=== PATIENT | male | born 1970 | race Caucasian/White ===

== ENCOUNTER 2017-04-22 08:31 | Inpatient (IN) | payer MEDICAID, OTHER ==
[~2017-04-22] VITALS: Ht 172.7 cm; Wt 60.3 kg
[2017-04-22] MEDS ORDERED: LORazepam 2MG/ML-1ML VIAL IV ONE ×4 (08:45→11:15)
[2017-04-22 09:12] LABS: Basophils # (auto) 0 uL; Basophils % (auto) 0.1 % (0.0-2.0); CONDITION Y; Eosinophils # (auto) 0 uL; Hematocrit 47.4 % (41.0-53.0); Hemoglobin 16.4 g/dL (13.5-17.5); Lymphocytes # (auto) 0.9 uL; Lymphocytes % (auto) 5.7 % (10.0-50.0); Mean Corpuscular Hemoglobin 32.3 pg (28.0-32.0); Mean Corpuscular Hgb Conc. 34.6 g/dL (32.0-36.0); Mean Corpuscular Volume 93.4 fL (80.0-100.0); Mean Platelet Volume 9.1 fL (7.4-10.4); Monocytes # (auto) 0.8 uL; Neutrophils % (auto) 89.2 % (37.0-80.0); Platelet Count (auto) 252 10^3/uL (140-450); Red Cell Distribution Width 12.8 % (11.6-16.0); White Blood Cell 15.8 10^3/uL (4.4-10.8)
[2017-04-22 09:26] LABS: Allen Test Yes; Base Excess -5.5 mmol/L (-2.0-2.0); Blood 02Sat 97.2 % (96-100); Blood COHb 0.1 % (0.5-1.5); Blood MetHb 0.4 % (0.0-1.5); HCO3 14.7 mmol/L (22-26.0); HHb 2.8 % (0.0-5.0); MODE NASAL CANNULA; O2Hb 96.7 % (94.0-97.0); PCO2 19.5 mmHg (35.0-45.0); PCO2(T) 19.5 mmHg (35.0-45.0); PO2 100.4 mmHg (80.0-100.0); PO2(T) 100.4 mmHg (80.0-100.0); Sample Type Arterial; pH 7.495 (7.350-7.450)
[2017-04-22 09:27] LABS: INR 1.11 (0.9-1.15); Partial Thromboplastin Time 30.6 sec (22.64-33.71); Prothrombin Time 12.1 sec (9.37-12.3)
[2017-04-22] MEDS ORDERED: SODIUM CHLORIDE 0.9% 2,000 ML IV ONE (09:30)
[2017-04-22 09:33] LABS: Lactic Acid w/Reflex 11.3 mmol/L (0.4-2.0)
[2017-04-22 09:39] LABS: Albumin 2.9 g/dL (3.4-5.0); Alkaline Phosphatase 105 U/L (45-117); Anion Gap 24 (5-15); BUN/Creatinine Ratio 6.6; Bilirubin, Total 0.5 mg/dL (0.2-1.0); Blood Urea Nitrogen 15 mg/dL (7-18); Carbon Dioxide 13 mmol/L (21-32); Chloride 79 mmol/L (98-107); GFR African American 40 mL/min; GFR Non-African American 33 mL/min; Glucose 105 mg/dL (74-106); Magnesium 2.7 mg/dL (1.6-2.6); Total Protein 7.2 g/dL (6.4-8.2)
[2017-04-22 09:41] LABS: REFLEX LACTIC ACID YES OR NO YES
[2017-04-22 09:42] LABS: Aspartate Aminotransferase 54 U/L (15-37)
[2017-04-22 09:44] LABS: Sodium 116 mmol/L (136-145)
[2017-04-22 09:56] LABS: Urine Bilirubin Negative (Negative); Urine Blood 1+ /uL (Negative); Urine Color Yellow (Yellow); Urine Glucose Normal (Normal); Urine Hyaline Cast FEW /lpf (0 - 2); Urine Ketone 1+ (Negative); Urine Mucus FEW (None Seen); Urine Nitrite Negative (Negative); Urine RBC 4 /hpf (0 - 3); Urine Squamous Epithelial Cell FEW /hpf (<5); Urine Urobilinogen Normal (Negative); Urine pH 5.5 (5.0-8.0)
[2017-04-22] MEDS ORDERED: SODIUM CHLORIDE 0.9% 1,000 ML IV ONE ×3 (10:00→11:15)
[2017-04-22] MEDS ORDERED: PIPERACILLIN-TAZOB 3.375GM 100 ML IV ONE (10:30)
[2017-04-22] MEDS ORDERED: SODIUM CHL 3% 500 ML IV ONE (10:30)
[2017-04-22] MEDS ORDERED: MORPHINE SULFATE 4 MG/ML SYRG IV PRN ×2 (11:15)
[2017-04-22] MEDS ORDERED: NITROGLYCERIN 0.4 MG SL TAB SL PRN (11:15)
[2017-04-22] MEDS ORDERED: MORPHINE SULFATE 4 MG/ML SYRG IV ONE (11:15)
[2017-04-22] MEDS ORDERED: LACTULOSE 20Gm/30ML SOLN PO PRN (11:15)
[2017-04-22] MEDS ORDERED: HYDROcodone-ACET 5/325MG TAB PO PRN (11:15)
[2017-04-22] MEDS ORDERED: ONDANSETRON HCL 4 MG/2 ML VIAL IV PRN (11:15)
[2017-04-22] MEDS ORDERED: LORazepam 2MG/ML-1ML VIAL IV PRN (11:15)
[2017-04-22] MEDS ORDERED: ACETAMINOPHEN 500 MG TAB PO PRN (11:15)
[2017-04-22] MEDS: ENOXAPARIN SOD 40 MG/0.4 ML SYRINGE SC SCH (11:45)
[2017-04-22] MEDS: cefTRIAXone 1GM/50ML D5W 50 ML IV SCH (12:37)
[2017-04-22] MEDS: AZITHROMYCIN 500MG/D5W 250ML 250 ML IV SCH (13:00)
[2017-04-22 15:10] LABS: Temperature: 23.4 C (20.0-25.0)
[2017-04-23] MEDS: SODIUM CHLORIDE 0.9% 1,000 ML IV SCH ×2 (02:28→15:58)
[2017-04-23] MEDS ORDERED: SODIUM CHL 3% 500 ML IV ONE (02:30)
[2017-04-23 05:19] LABS: Basophils # (auto) 0 uL; Basophils % (auto) 0.1 % (0.0-2.0); CONDITION Y; Eosinophils # (auto) 0 uL; Eosinophils % (auto) 0.1 % (0.0-7.0); Hematocrit 32.3 % (41.0-53.0); Hemoglobin 11.2 g/dL (13.5-17.5); Lymphocytes % (auto) 9.9 % (10.0-50.0); Mean Corpuscular Hemoglobin 32.8 pg (28.0-32.0); Mean Corpuscular Hgb Conc. 34.7 g/dL (32.0-36.0); Mean Corpuscular Volume 94.5 fL (80.0-100.0); Mean Platelet Volume 9.2 fL (7.4-10.4); Monocytes # (auto) 0.5 uL; Monocytes % (auto) 4.8 % (0.0-12.0); Neutrophils # (auto) 8.4 uL; Neutrophils % (auto) 85.1 % (37.0-80.0); Platelet Count (auto) 181 10^3/uL (140-450); Red Cell Distribution Width 13.1 % (11.6-16.0); White Blood Cell 9.9 10^3/uL (4.4-10.8)
[2017-04-23 05:33] LABS: BUN/Creatinine Ratio 16.5; Calcium 6.5 mg/dL (8.5-10.1); INR 1.1 (0.9-1.15); Partial Thromboplastin Time 36.7 sec (22.64-33.71); Potassium 3.4 mmol/L (3.5-5.1)
[2017-04-23] MEDS: cefTRIAXone 1GM/50ML D5W 50 ML IV SCH (09:06)
[2017-04-23] MEDS: ENOXAPARIN SOD 40 MG/0.4 ML SYRINGE SC SCH (10:30)
[2017-04-23] MEDS: AZITHROMYCIN 500MG/D5W 250ML 250 ML IV SCH (10:30)
[2017-04-23] MEDS ORDERED: CLINDAMYCIN 900MG IV 50 ML IV ONE (11:15)
[2017-04-23] MEDS: THIAMINE INJ 100 MG, MULTIPLE VITAMIN 10 ML, FOLIC ACID 1 MG, MAGNESIUM SULF SDV 50% 8 ... IV SCH ×5 (15:58)
[2017-04-23] MEDS: CLINDAMYCIN 600MG IV 50 ML IV SCH (17:36)
[2017-04-23 21:56] LABS: BUN/Creatinine Ratio 14.9; Calcium 7.1 mg/dL (8.5-10.1); Potassium 3.1 mmol/L (3.5-5.1)
[2017-04-24] MEDS ORDERED: POTASSIUM CHL 20 Meq TABLET PO ONE (02:15)
[2017-04-24] MEDS: CLINDAMYCIN 600MG IV 50 ML IV SCH (03:04)
[2017-04-24 05:37] VITALS: BP 137/89
[2017-04-24 06:26] VITALS: BP 137/89
[2017-04-24 08:00] VITALS: BP 124/87
[2017-04-24 08:03] LABS: Basophils # (auto) 0 uL; Basophils % (auto) 0.1 % (0.0-2.0); CONDITION Y; Eosinophils # (auto) 0.1 uL; Eosinophils % (auto) 0.5 % (0.0-7.0); Hemoglobin 11.9 g/dL (13.5-17.5); Lymphocytes # (auto) 1.5 uL; Lymphocytes % (auto) 14.5 % (10.0-50.0); Mean Corpuscular Hemoglobin 32.5 pg (28.0-32.0); Mean Corpuscular Hgb Conc. 34.2 g/dL (32.0-36.0); Mean Corpuscular Volume 95.2 fL (80.0-100.0); Mean Platelet Volume 9.3 fL (7.4-10.4); Monocytes # (auto) 0.5 uL; Monocytes % (auto) 5.1 % (0.0-12.0); Neutrophils # (auto) 8.4 uL; Neutrophils % (auto) 79.8 % (37.0-80.0); Platelet Count (auto) 178 10^3/uL (140-450); Red Cell Distribution Width 13.2 % (11.6-16.0); White Blood Cell 10.5 10^3/uL (4.4-10.8)
[2017-04-24 08:32] LABS: BUN/Creatinine Ratio 10.3; Bilirubin, Total 0.3 mg/dL (0.2-1.0); Calcium 7.4 mg/dL (8.5-10.1); Potassium 3.2 mmol/L (3.5-5.1)
[2017-04-24] MEDS: cefTRIAXone 1GM/50ML D5W 50 ML IV SCH (09:33)
[2017-04-24] MEDS: SODIUM CHLORIDE 0.9% 1,000 ML IV SCH ×2 (09:33→18:39)
[2017-04-24] MEDS: ENOXAPARIN SOD 40 MG/0.4 ML SYRINGE SC SCH (10:42)
[2017-04-24] MEDS: AZITHROMYCIN 500MG/D5W 250ML 250 ML IV SCH (10:42)
[2017-04-24 12:00] VITALS: BP_SYST 109; BP_SYST 113; BP_DIAS 61; BP_DIAS 84
[2017-04-24] MEDS: FOLIC ACID 1 MG TAB PO SCH (13:05)
[2017-04-24] MEDS ORDERED: LORazepam 2MG/ML-1ML VIAL IV PRN (15:00)
[2017-04-24] MEDS: THIAMINE INJ 100 MG, MULTIPLE VITAMIN 10 ML, FOLIC ACID 1 MG, MAGNESIUM SULF SDV 50% 8 ... IV SCH ×5 (16:28)
[2017-04-24 17:00] VITALS: BP 130/80
[2017-04-24 23:40] VITALS: BP 146/108
[2017-04-25 05:28] VITALS: BP 135/79
[2017-04-25 05:37] LABS: Basophils # (auto) 0 uL; Basophils % (auto) 0.3 % (0.0-2.0); CONDITION Y; Eosinophils # (auto) 0.1 uL; Eosinophils % (auto) 0.5 % (0.0-7.0); Hemoglobin 11.3 g/dL (13.5-17.5); Lymphocytes # (auto) 1.5 uL; Mean Corpuscular Hemoglobin 32.5 pg (28.0-32.0); Mean Corpuscular Hgb Conc. 34.3 g/dL (32.0-36.0); Mean Corpuscular Volume 94.7 fL (80.0-100.0); Mean Platelet Volume 9.5 fL (7.4-10.4); Monocytes # (auto) 0.6 uL; Monocytes % (auto) 6.4 % (0.0-12.0); Neutrophils # (auto) 7.3 uL; Neutrophils % (auto) 76.8 % (37.0-80.0); Platelet Count (auto) 191 10^3/uL (140-450); Red Cell Distribution Width 13.2 % (11.6-16.0); White Blood Cell 9.5 10^3/uL (4.4-10.8)
[2017-04-25 06:05] LABS: INR 1.03 (0.9-1.15); Prothrombin Time 11.2 sec (9.37-12.3)
[2017-04-25 06:20] LABS: Albumin 1.8 g/dL (3.4-5.0); BUN/Creatinine Ratio 5.3; Magnesium 2.4 mg/dL (1.6-2.6)
[2017-04-25 06:23] LABS: Bilirubin, Total 0.5 mg/dL (0.2-1.0); Total Protein 5.3 g/dL (6.4-8.2)
[2017-04-25] MEDS: SODIUM CHLORIDE 0.9% 1,000 ML IV SCH (07:50)
[2017-04-25 08:00] VITALS: BP 141/94
[2017-04-25] MEDS: cefTRIAXone 1GM/50ML D5W 50 ML IV SCH (09:00)
[2017-04-25] MEDS: AZITHROMYCIN 500MG/D5W 250ML 250 ML IV SCH (10:00)
[2017-04-25] MEDS: ENOXAPARIN SOD 40 MG/0.4 ML SYRINGE SC SCH (10:35)
[2017-04-25] MEDS: FOLIC ACID 1 MG TAB PO SCH (10:35)
[2017-04-25 12:00] VITALS: BP 144/94
[2017-04-25 13:41] VITALS: BP 142/75
== END 2017-04-25 14:50 | disposition home or self-care (01) | DRG 640 ==
LOC: ER 08:34 → TELE 08:35 → WEST WING 04-24 05:20 → TELE-WESTW 04-24 18:57
PROVIDERS: ADMIT Internal Medicine; ATTEND Internal Medicine
DX: E87.1 Hypo-osmolality and hyponatremia (principal); J18.1 Lobar pneumonia, unspecified organism; J98.11 Atelectasis; M62.82 Rhabdomyolysis; N17.9 Acute kidney failure, unspecified; T67.0XXA Heatstroke and sunstroke, initial encounter; E87.2 Acidosis; I50.9 Heart failure, unspecified; R00.0 Tachycardia, unspecified; E86.0 Dehydration; R56.9 Unspecified convulsions; F10.20 Alcohol dependence, uncomplicated
CPT/HCPCS: 36415; 36600; 70450; 70551; 71010; 71020; 76700; 80048; 80053; 80307; 80320; 81001; 82550; 82607; 82746; 82805; 83605; 83735; 83930; 84443; 84484; 85025; 85610; 85730; 86141; 87040; 87077; 87186; 93005; 93306; 95819; 96365; 96366; 96368; 96375; 96376; 99291; J0696; J2543; J3490

== ENCOUNTER 2017-04-26 21:05 | Inpatient (IN) | payer OTHER ==
[~2017-04-26] VITALS: Ht 175.3 cm; Wt 59.4 kg
[2017-04-26 22:31] LABS: Basophils # (auto) 0 uL; Basophils % (auto) 0.2 % (0.0-2.0); CONDITION Y; Eosinophils # (auto) 0.1 uL; Eosinophils % (auto) 0.5 % (0.0-7.0); Hematocrit 32.7 % (41.0-53.0); Hemoglobin 11.2 g/dL (13.5-17.5); Lymphocytes # (auto) 1.7 uL; Lymphocytes % (auto) 14.1 % (10.0-50.0); Mean Corpuscular Hemoglobin 32.1 pg (28.0-32.0); Mean Corpuscular Hgb Conc. 34.1 g/dL (32.0-36.0); Monocytes # (auto) 0.8 uL; Monocytes % (auto) 6.4 % (0.0-12.0); Neutrophils # (auto) 9.5 uL; Neutrophils % (auto) 78.8 % (37.0-80.0); Platelet Count (auto) 245 10^3/uL (140-450); Red Cell Distribution Width 13.7 % (11.6-16.0); White Blood Cell 12.1 10^3/uL (4.4-10.8)
[2017-04-26 22:47] LABS: Albumin 2.2 g/dL (3.4-5.0); Alkaline Phosphatase 70 U/L (45-117); Anion Gap 16 (5-15); Aspartate Aminotransferase 77 U/L (15-37); BUN/Creatinine Ratio 7.5; Bilirubin, Total 0.6 mg/dL (0.2-1.0); Blood Urea Nitrogen 4 mg/dL (7-18); Calcium 7.9 mg/dL (8.5-10.1); Carbon Dioxide 19 mmol/L (21-32); Chloride 94 mmol/L (98-107); GFR African American 213 mL/min; GFR Non-African American 176 mL/min; Glucose 65 mg/dL (74-106); Magnesium 2.2 mg/dL (1.6-2.6); Sodium 129 mmol/L (136-145); Total Protein 6.1 g/dL (6.4-8.2)
[2017-04-26 22:53] LABS: Potassium 2.7 mmol/L (3.5-5.1)
[2017-04-27] MEDS: POTASSIUM CHL 20 Meq TABLET PO ONE ×2 (00:45→00:53)
[2017-04-27] MEDS ORDERED: THIAMINE HCL 100 MG/ML 2ML VIAL IV ONE (00:45)
[2017-04-27] MEDS ORDERED: SODIUM CHLORIDE 0.9% 1,000 ML IV ONE (00:45)
[2017-04-27] MEDS ORDERED: POTASSIUM CHL 10% (20 MEQ/15ML) ORAL SOLN PO ONE (01:30)
[2017-04-27 02:08] LABS: Urine RBC None Seen /hpf (0 - 3)
[2017-04-27 02:23] LABS: Urine Bilirubin Negative (Negative); Urine Blood TRACE /uL (Negative); Urine Color Yellow (Yellow); Urine Glucose Normal (Normal); Urine Nitrite Negative (Negative); Urine Urobilinogen Normal (Negative); Urine pH 5.5 (5.0-8.0)
[2017-04-27 02:25] LABS: Urine Ketone 4+ (Negative)
[2017-04-27 03:42] LABS: Amylase 48 U/L (25-115)
[2017-04-27 03:57] LABS: B-Type Natriuretic Peptide 714.42 pg/mL (0-100)
[2017-04-27 04:05] LABS: INR 1.05 (0.9-1.15); Partial Thromboplastin Time 33.4 sec (22.64-33.71); Prothrombin Time 11.4 sec (9.37-12.3)
[2017-04-27 04:07] LABS: Temperature: 23.3 C (20.0-25.0)
[2017-04-27] MEDS ORDERED: TEMAZEPAM 15 MG CAP PO PRN (05:30)
[2017-04-27] MEDS ORDERED: HYDROcodone-ACET 5/325MG TAB PO PRN (05:30)
[2017-04-27] MEDS ORDERED: MORPHINE SULF INJ 2 MG/ML SYRINGE 1ML IV PRN (05:30)
[2017-04-27] MEDS ORDERED: NITROGLYCERIN 0.4 MG SL TAB SL PRN (05:30)
[2017-04-27] MEDS ORDERED: ACETAMINOPHEN 325 MG TAB PO PRN (05:30)
[2017-04-27] MEDS ORDERED: ONDANSETRON HCL 4 MG/2 ML VIAL IV PRN (05:30)
[2017-04-27] MEDS: SODIUM CHLORIDE 0.9% 1,000 ML IV SCH ×2 (05:55→20:30)
[2017-04-27 05:56] LABS: BUN/Creatinine Ratio 6.4; Calcium 7.4 mg/dL (8.5-10.1)
[2017-04-27] MEDS ORDERED: IOHEXOL 350 MG/ML 100ML IJ ONE (09:51)
[2017-04-27] MEDS: FAMOTIDINE 20 MG TAB PO SCH ×2 (10:29→21:47)
[2017-04-27] MEDS: ASPirin 81 mg TAB PO SCH (10:29)
[2017-04-27] MEDS: THIAMINE HCL 100 MG TAB PO SCH (10:29)
[2017-04-27] MEDS: ENOXAPARIN SOD 40 MG/0.4 ML SYRINGE SC SCH (10:29)
[2017-04-27] MEDS: FOLIC ACID 1 MG TAB PO SCH (10:29)
[2017-04-27] MEDS: AZITHROMYCIN 500MG/D5W 250ML 250 ML IV SCH (12:54)
[2017-04-27] MEDS: cefTRIAXone 1GM/50ML D5W 50 ML IV SCH (12:54)
[2017-04-27 16:42] LABS: Basophils # (auto) 0 uL; Basophils % (auto) 0.1 % (0.0-2.0); CONDITION Y; Eosinophils # (auto) 0.3 uL; Eosinophils % (auto) 3.4 % (0.0-7.0); Hematocrit 31.2 % (41.0-53.0); Hemoglobin 10.6 g/dL (13.5-17.5); Lymphocytes # (auto) 1.6 uL; Lymphocytes % (auto) 15.4 % (10.0-50.0); Mean Corpuscular Hemoglobin 32.1 pg (28.0-32.0); Mean Corpuscular Hgb Conc. 34.1 g/dL (32.0-36.0); Mean Corpuscular Volume 94.2 fL (80.0-100.0); Mean Platelet Volume 8.6 fL (7.4-10.4); Monocytes # (auto) 0.7 uL; Neutrophils # (auto) 7.7 uL; Neutrophils % (auto) 74.1 % (37.0-80.0); Platelet Count (auto) 231 10^3/uL (140-450); Red Cell Distribution Width 13.3 % (11.6-16.0); White Blood Cell 10.3 10^3/uL (4.4-10.8)
[2017-04-27] MEDS ORDERED: POTASSIUM CHL 20 Meq TABLET PO ONE (19:45)
[2017-04-27 20:30] VITALS: BP 153/86
[2017-04-27 22:00] VITALS: BP 153/86
[2017-04-28 05:00] VITALS: BP 164/97
[2017-04-28 07:33] LABS: Basophils # (auto) 0 uL; Basophils % (auto) 0.2 % (0.0-2.0); CONDITION Y; Eosinophils # (auto) 0.3 uL; Eosinophils % (auto) 2.8 % (0.0-7.0); Hematocrit 30.7 % (41.0-53.0); Hemoglobin 10.6 g/dL (13.5-17.5); Lymphocytes # (auto) 1.3 uL; Lymphocytes % (auto) 11.3 % (10.0-50.0); Mean Corpuscular Hemoglobin 32.6 pg (28.0-32.0); Mean Corpuscular Hgb Conc. 34.5 g/dL (32.0-36.0); Mean Corpuscular Volume 94.5 fL (80.0-100.0); Monocytes # (auto) 0.6 uL; Monocytes % (auto) 5.6 % (0.0-12.0); Neutrophils % (auto) 80.1 % (37.0-80.0); Platelet Count (auto) 219 10^3/uL (140-450); Red Cell Distribution Width 13.6 % (11.6-16.0); White Blood Cell 11.2 10^3/uL (4.4-10.8)
[2017-04-28 07:42] LABS: INR 1.07 (0.9-1.15); Prothrombin Time 11.7 sec (9.37-12.3)
[2017-04-28 07:50] LABS: Albumin 1.7 g/dL (3.4-5.0); BUN/Creatinine Ratio 5.7; Bilirubin, Total 0.4 mg/dL (0.2-1.0); Calcium 7.7 mg/dL (8.5-10.1); Magnesium 2.1 mg/dL (1.6-2.6); Total Protein 5.2 g/dL (6.4-8.2)
[2017-04-28 07:54] LABS: Potassium 2.9 mmol/L (3.5-5.1)
[2017-04-28 08:00] VITALS: BP 155/95
[2017-04-28 09:00] VITALS: BP 155/95
[2017-04-28] MEDS ORDERED: POTASSIUM CHL 20 Meq TABLET PO ONE ×2 (09:15→11:15)
[2017-04-28] MEDS: cefTRIAXone 1GM/50ML D5W 50 ML IV SCH (09:20)
[2017-04-28] MEDS: ENOXAPARIN SOD 40 MG/0.4 ML SYRINGE SC SCH (10:00)
[2017-04-28] MEDS ORDERED: LIDOCAINE 2%HCL (LOCAL ANESTH.) INJ 20ML MDV ONE (11:20)
[2017-04-28] MEDS ORDERED: IOHEXOL 350 MG/ML 100ML IJ ONE (11:20)
[2017-04-28] MEDS: SODIUM CHLORIDE 0.9% 1,000 ML IV SCH (11:47)
[2017-04-28] MEDS: AZITHROMYCIN 500MG/D5W 250ML 250 ML IV SCH (11:49)
[2017-04-28] MEDS ORDERED: MIDAZOLAM HCL 1MG/1ML-2 ML VIAL ONE (11:54)
[2017-04-28] MEDS ORDERED: fentaNYL CITRATE 100 MCG/2 ML VL ONE (11:54)
[2017-04-28] MEDS ORDERED: ANGIOMAX 250 MG VIAL IV ONE (11:54)
[2017-04-28] MEDS ORDERED: SODIUM CHL 0.9% 50 ML ONE (11:54)
[2017-04-28] MEDS ORDERED: EPTIFIBATIDE INJ (2MG/ML) 10ML VIAL IV ONE (11:55)
[2017-04-28] MEDS ORDERED: SODIUM CHLORIDE 0.9% 1,000 ML IV SCH ×2 (12:35→15:00)
[2017-04-28] MEDS: FOLIC ACID 1 MG TAB PO SCH (12:58)
[2017-04-28] MEDS: ASPirin 81 mg TAB PO SCH (12:58)
[2017-04-28] MEDS: FAMOTIDINE 20 MG TAB PO SCH ×2 (12:59→21:54)
[2017-04-28] MEDS: THIAMINE HCL 100 MG TAB PO SCH (12:59)
[2017-04-28] MEDS ORDERED: chlordiazePOXIDE HCL 25 MG CAP PO PRN (16:45)
[2017-04-28 17:16] VITALS: BP 160/97
[2017-04-28 20:00] VITALS: BP 105/70
[2017-04-28 22:00] VITALS: BP 105/70
[2017-04-29] VITALS (7 sets, daily range): BP systolic 130–141; BP diastolic 82–99
[2017-04-29 07:11] LABS: Basophils # (auto) 0.1 uL; Basophils % (auto) 0.6 % (0.0-2.0); CONDITION Y; Eosinophils # (auto) 0.4 uL; Eosinophils % (auto) 3.8 % (0.0-7.0); Hematocrit 27.6 % (41.0-53.0); Hemoglobin 9.4 g/dL (13.5-17.5); Lymphocytes # (auto) 1.9 uL; Lymphocytes % (auto) 19.6 % (10.0-50.0); Mean Corpuscular Hemoglobin 32.2 pg (28.0-32.0); Mean Corpuscular Hgb Conc. 34.2 g/dL (32.0-36.0); Mean Corpuscular Volume 94.1 fL (80.0-100.0); Mean Platelet Volume 8.7 fL (7.4-10.4); Monocytes # (auto) 0.6 uL; Monocytes % (auto) 6.5 % (0.0-12.0); Neutrophils # (auto) 6.8 uL; Neutrophils % (auto) 69.5 % (37.0-80.0); Platelet Count (auto) 237 10^3/uL (140-450); Red Cell Distribution Width 13.7 % (11.6-16.0); White Blood Cell 9.8 10^3/uL (4.4-10.8)
[2017-04-29 07:22] LABS: INR 1.14 (0.9-1.15)
[2017-04-29 07:30] LABS: Prothrombin Time 12.4 sec (9.37-12.3)
[2017-04-29 07:43] LABS: Albumin 1.6 g/dL (3.4-5.0); BUN/Creatinine Ratio 10.3; Bilirubin, Total 0.3 mg/dL (0.2-1.0); Calcium 7.6 mg/dL (8.5-10.1); Total Protein 5.3 g/dL (6.4-8.2)
[2017-04-29 08:04] LABS: Potassium 2.9 mmol/L (3.5-5.1)
[2017-04-29] MEDS: FAMOTIDINE 20 MG TAB PO SCH ×2 (10:05→22:06)
[2017-04-29] MEDS: FOLIC ACID 1 MG TAB PO SCH (10:05)
[2017-04-29] MEDS: cefTRIAXone 1GM/50ML D5W 50 ML IV SCH (10:05)
[2017-04-29] MEDS: ASPirin 81 mg TAB PO SCH (10:05)
[2017-04-29] MEDS: THIAMINE HCL 100 MG TAB PO SCH (10:05)
[2017-04-29] MEDS: ENOXAPARIN SOD 40 MG/0.4 ML SYRINGE SC SCH (10:06)
[2017-04-29] MEDS: AZITHROMYCIN 500MG/D5W 250ML 250 ML IV SCH (10:50)
[2017-04-29] MEDS ORDERED: POTASSIUM CHL 20 Meq TABLET PO ONE ×2 (16:00→18:15)
[2017-04-29] MEDS: SODIUM CHLORIDE 0.9% 1,000 ML IV SCH (16:26)
[2017-04-30] VITALS (7 sets, daily range): BP systolic 139–171; BP diastolic 76–97
[2017-04-30 06:39] LABS: Basophils # (auto) 0 uL; Basophils % (auto) 0.4 % (0.0-2.0); CONDITION Y; Eosinophils # (auto) 0.2 uL; Eosinophils % (auto) 1.6 % (0.0-7.0); Hematocrit 27.5 % (41.0-53.0); Hemoglobin 9.4 g/dL (13.5-17.5); Lymphocytes # (auto) 1.5 uL; Lymphocytes % (auto) 15.5 % (10.0-50.0); Mean Corpuscular Hemoglobin 32.3 pg (28.0-32.0); Mean Corpuscular Hgb Conc. 34.3 g/dL (32.0-36.0); Mean Corpuscular Volume 94.4 fL (80.0-100.0); Mean Platelet Volume 8.5 fL (7.4-10.4); Monocytes # (auto) 0.5 uL; Monocytes % (auto) 4.9 % (0.0-12.0); Neutrophils # (auto) 7.7 uL; Neutrophils % (auto) 77.6 % (37.0-80.0); Platelet Count (auto) 257 10^3/uL (140-450); Red Cell Distribution Width 13.6 % (11.6-16.0); White Blood Cell 9.9 10^3/uL (4.4-10.8)
[2017-04-30 06:45] LABS: INR 1.1 (0.9-1.15)
[2017-04-30 06:55] LABS: Potassium 3.3 mmol/L (3.5-5.1)
[2017-04-30 07:10] LABS: Albumin 1.8 g/dL (3.4-5.0); BUN/Creatinine Ratio 8.1; Bilirubin, Total 0.3 mg/dL (0.2-1.0); Calcium 7.7 mg/dL (8.5-10.1); Magnesium 2.1 mg/dL (1.6-2.6); Total Protein 5.5 g/dL (6.4-8.2)
[2017-04-30] MEDS: ENOXAPARIN SOD 40 MG/0.4 ML SYRINGE SC SCH (10:00)
[2017-04-30] MEDS: FAMOTIDINE 20 MG TAB PO SCH ×2 (10:11→21:55)
[2017-04-30] MEDS: SODIUM CHLORIDE 0.9% 1,000 ML IV SCH (10:11)
[2017-04-30] MEDS: THIAMINE HCL 100 MG TAB PO SCH (10:11)
[2017-04-30] MEDS: FOLIC ACID 1 MG TAB PO SCH (10:11)
[2017-04-30] MEDS: ASPirin 81 mg TAB PO SCH (10:11)
[2017-04-30] MEDS: cefTRIAXone 1GM/50ML D5W 50 ML IV SCH (12:03)
[2017-04-30] MEDS: AZITHROMYCIN 500MG/D5W 250ML 250 ML IV SCH (12:03)
[2017-04-30] MEDS: PRO-STAT 64 30ML PO SCH (21:57)
[2017-04-30 22:45] LABS: Basophils # (auto) 0 uL; Basophils % (auto) 0.3 % (0.0-2.0); CONDITION Y; Eosinophils # (auto) 0.2 uL; Eosinophils % (auto) 1.4 % (0.0-7.0); Hematocrit 25.5 % (41.0-53.0); Hemoglobin 8.8 g/dL (13.5-17.5); Lymphocytes # (auto) 1.9 uL; Lymphocytes % (auto) 16.2 % (10.0-50.0); Mean Corpuscular Hemoglobin 32.4 pg (28.0-32.0); Mean Corpuscular Hgb Conc. 34.7 g/dL (32.0-36.0); Mean Corpuscular Volume 93.4 fL (80.0-100.0); Mean Platelet Volume 8.6 fL (7.4-10.4); Monocytes # (auto) 0.6 uL; Monocytes % (auto) 5.4 % (0.0-12.0); Neutrophils # (auto) 8.9 uL; Neutrophils % (auto) 76.7 % (37.0-80.0); Platelet Count (auto) 240 10^3/uL (140-450); Red Cell Distribution Width 13.6 % (11.6-16.0); White Blood Cell 11.6 10^3/uL (4.4-10.8)
[2017-04-30 23:08] LABS: BUN/Creatinine Ratio 9.4; Calcium 7.2 mg/dL (8.5-10.1); Potassium 3.1 mmol/L (3.5-5.1)
[2017-04-30 23:25] LABS: Allen Test Yes; Base Excess 2.1 mmol/L (-2.0-2.0); Blood 02Sat 92.2 % (96-100); Blood COHb 0.3 % (0.5-1.5); Blood MetHb 0.3 % (0.0-1.5); HCO3 24.1 mmol/L (22-26.0); HHb 7.8 % (0.0-5.0); MODE NASAL CANNULA; O2Hb 91.6 % (94.0-97.0); PCO2 28.4 mmHg (35.0-45.0); PCO2(T) 28.4 mmHg (35.0-45.0); PO2 67.7 mmHg (80.0-100.0); PO2(T) 67.7 mmHg (80.0-100.0); Sample Type Arterial; pH 7.547 (7.350-7.450)
[2017-05-01 05:00] VITALS: BP 144/89
[2017-05-01] MEDS: SODIUM CHLORIDE 0.9% 1,000 ML IV SCH (07:00)
[2017-05-01 08:00] VITALS: BP 147/85
[2017-05-01] MEDS ORDERED: THIAMINE IV SCH ×6 (08:29→10:00)
[2017-05-01] MEDS ORDERED: SODIUM CHL 0.9% IV SCH ×6 (08:29→10:00)
[2017-05-01] MEDS ORDERED: POTASSIUM CHL 20 Meq TABLET PO ONE (08:30)
[2017-05-01 09:00] VITALS: BP 147/85
[2017-05-01] MEDS: PRO-STAT 64 30ML PO SCH ×2 (10:00→22:00)
[2017-05-01] MEDS ORDERED: THIAMINE HCL 100 MG/ML 2ML VIAL IV SCH (10:00)
[2017-05-01] MEDS: ENOXAPARIN SOD 40 MG/0.4 ML SYRINGE SC SCH (10:00)
[2017-05-01] MEDS: FAMOTIDINE 20 MG TAB PO SCH ×2 (11:16→23:35)
[2017-05-01] MEDS: THIAMINE IV SCH ×2 (11:16→18:32)
[2017-05-01] MEDS: FOLIC ACID 1 MG TAB PO SCH (11:16)
[2017-05-01] MEDS: SODIUM CHL 0.9% IV SCH ×2 (11:16→18:32)
[2017-05-01] MEDS: cefTRIAXone 1GM/50ML D5W 50 ML IV SCH (11:16)
[2017-05-01] MEDS: ASPirin 81 mg TAB PO SCH (11:16)
[2017-05-01 13:00] VITALS: BP 139/98
[2017-05-01 15:32] LABS: Basophils # (auto) 0 uL; Basophils % (auto) 0.4 % (0.0-2.0); CONDITION Y; Eosinophils # (auto) 0.2 uL; Hematocrit 27.9 % (41.0-53.0); Hemoglobin 9.6 g/dL (13.5-17.5); Lymphocytes # (auto) 1.8 uL; Mean Corpuscular Hemoglobin 32.4 pg (28.0-32.0); Mean Corpuscular Hgb Conc. 34.2 g/dL (32.0-36.0); Mean Corpuscular Volume 94.9 fL (80.0-100.0); Mean Platelet Volume 8.2 fL (7.4-10.4); Monocytes # (auto) 0.8 uL; Monocytes % (auto) 7.7 % (0.0-12.0); Neutrophils # (auto) 6.9 uL; Neutrophils % (auto) 70.9 % (37.0-80.0); Platelet Count (auto) 313 10^3/uL (140-450); Red Cell Distribution Width 13.6 % (11.6-16.0); White Blood Cell 9.7 10^3/uL (4.4-10.8)
[2017-05-01 15:50] LABS: Calcium 7.8 mg/dL (8.5-10.1); Potassium 3.3 mmol/L (3.5-5.1)
[2017-05-01] MEDS ORDERED: LORazepam 2MG/ML-1ML VIAL IM ONE (16:00)
[2017-05-01] MEDS ORDERED: LORazepam 2MG/ML-1ML VIAL IV ONE (16:30)
[2017-05-01] MEDS: NICOTINE 21MG/24 HR TOPICAL PATCH TD SCH (18:32)
[2017-05-01 22:00] VITALS: BP 136/93
[2017-05-02] MEDS ORDERED: THIAMINE HCL 100 MG/ML 2ML VIAL ONE (02:24)
[2017-05-02] MEDS: THIAMINE IV SCH ×3 (02:41→18:24)
[2017-05-02] MEDS: SODIUM CHL 0.9% IV SCH ×3 (02:41→18:24)
[2017-05-02] MEDS: SODIUM CHLORIDE 0.9% 1,000 ML IV SCH ×2 (03:00→23:00)
[2017-05-02 05:00] VITALS: BP 140/94
[2017-05-02 05:42] LABS: Basophils # (auto) 0.1 uL; Basophils % (auto) 1.2 % (0.0-2.0); CONDITION Y; DEFINITIVE SEE PRINTOUT; Eosinophils # (auto) 0.2 uL; Eosinophils % (auto) 3.2 % (0.0-7.0); Hemoglobin 8.4 g/dL (13.5-17.5); Lymphocytes # (auto) 2.2 uL; Lymphocytes % (auto) 29.1 % (10.0-50.0); Mean Corpuscular Hemoglobin 31.7 pg (28.0-32.0); Mean Corpuscular Hgb Conc. 33.6 g/dL (32.0-36.0); Mean Corpuscular Volume 94.3 fL (80.0-100.0); Mean Platelet Volume 8.6 fL (7.4-10.4); Monocytes # (auto) 0.6 uL; Monocytes % (auto) 8.7 % (0.0-12.0); Neutrophils # (auto) 4.3 uL; Neutrophils % (auto) 57.8 % (37.0-80.0); Platelet Count (auto) 285 10^3/uL (140-450); Red Cell Distribution Width 13.4 % (11.6-16.0); White Blood Cell 7.4 10^3/uL (4.4-10.8)
[2017-05-02 06:14] LABS: Calcium 7.4 mg/dL (8.5-10.1); Potassium 3.2 mmol/L (3.5-5.1)
[2017-05-02 06:18] LABS: BUN/Creatinine Ratio 9.4
[2017-05-02 09:00] VITALS: BP 150/93
[2017-05-02] MEDS: cefTRIAXone 1GM/50ML D5W 50 ML IV SCH (09:39)
[2017-05-02] MEDS: FOLIC ACID 1 MG TAB PO SCH (09:40)
[2017-05-02] MEDS: FAMOTIDINE 20 MG TAB PO SCH ×2 (09:40→22:26)
[2017-05-02] MEDS: ENOXAPARIN SOD 40 MG/0.4 ML SYRINGE SC SCH (09:40)
[2017-05-02] MEDS: ASPirin 81 mg TAB PO SCH (09:40)
[2017-05-02] MEDS: PRO-STAT 64 30ML PO SCH ×2 (09:41→22:26)
[2017-05-02] MEDS ORDERED: POTASSIUM CHL 20 Meq TABLET PO ONE (11:45)
[2017-05-02 13:00] VITALS: BP 136/91
[2017-05-02 17:00] VITALS: BP 129/95
[2017-05-02] MEDS: NICOTINE 21MG/24 HR TOPICAL PATCH TD SCH (18:00)
[2017-05-02] MEDS: Boost Glucose Control 8 Ounces PO SCH (18:24)
[2017-05-02 20:00] VITALS: BP 152/88
[2017-05-02 21:49] VITALS: BP 143/98
[2017-05-03] MEDS ORDERED: THIAMINE HCL 100 MG/ML 2ML VIAL ONE ×2 (01:14→01:17)
[2017-05-03] MEDS: THIAMINE IV SCH (01:39)
[2017-05-03] MEDS: SODIUM CHL 0.9% IV SCH (01:39)
[2017-05-03 05:07] VITALS: BP 138/94
[2017-05-03 06:48] LABS: Basophils # (auto) 0.1 uL; CONDITION Y; Eosinophils # (auto) 0.2 uL; Eosinophils % (auto) 2.5 % (0.0-7.0); Hematocrit 27.2 % (41.0-53.0); Hemoglobin 9.2 g/dL (13.5-17.5); Lymphocytes # (auto) 1.9 uL; Mean Corpuscular Hgb Conc. 33.7 g/dL (32.0-36.0); Mean Platelet Volume 8.6 fL (7.4-10.4); Monocytes # (auto) 0.8 uL; Monocytes % (auto) 11.2 % (0.0-12.0); Neutrophils # (auto) 4.2 uL; Neutrophils % (auto) 58.3 % (37.0-80.0); Platelet Count (auto) 325 10^3/uL (140-450); Red Cell Distribution Width 13.8 % (11.6-16.0); White Blood Cell 7.2 10^3/uL (4.4-10.8)
[2017-05-03 07:28] LABS: Calcium 7.8 mg/dL (8.5-10.1); Potassium 3.6 mmol/L (3.5-5.1)
[2017-05-03] MEDS ORDERED: THIAMINE HCL 100 MG/ML 2ML VIAL IV ONE (08:00)
[2017-05-03] MEDS: cefTRIAXone 1GM/50ML D5W 50 ML IV SCH (09:40)
[2017-05-03] MEDS: ASPirin 81 mg TAB PO SCH (09:41)
[2017-05-03] MEDS: FAMOTIDINE 20 MG TAB PO SCH ×2 (09:41→22:12)
[2017-05-03] MEDS: FOLIC ACID 1 MG TAB PO SCH (09:41)
[2017-05-03] MEDS: PRO-STAT 64 30ML PO SCH ×2 (09:41→22:13)
[2017-05-03] MEDS: Boost Glucose Control 8 Ounces PO SCH ×3 (09:41→18:07)
[2017-05-03] MEDS: ENOXAPARIN SOD 40 MG/0.4 ML SYRINGE SC SCH (09:42)
[2017-05-03] MEDS ORDERED: THIAMINE HCL 100 MG/ML 2ML VIAL IV SCH (10:00)
[2017-05-03 11:47] VITALS: BP 144/94
[2017-05-03] MEDS: THIAMINE INJ 250 MG in D5W 5% 50 ML IV SCH (12:13)
[2017-05-03 16:40] VITALS: BP 147/97
[2017-05-03] MEDS: NICOTINE 21MG/24 HR TOPICAL PATCH TD SCH (17:11)
[2017-05-03 20:00] VITALS: BP 122/89
[2017-05-03 21:02] VITALS: BP 149/83
[2017-05-03] MEDS: SODIUM CHLORIDE 0.9% 1,000 ML IV SCH (22:12)
[2017-05-04 05:14] VITALS: BP 136/91
[2017-05-04] MEDS: Boost Glucose Control 8 Ounces PO SCH ×2 (08:00→12:06)
[2017-05-04 09:18] VITALS: BP 158/94
[2017-05-04] MEDS: PRO-STAT 64 30ML PO SCH (10:00)
[2017-05-04] MEDS: cefTRIAXone 1GM/50ML D5W 50 ML IV SCH (12:00)
[2017-05-04] MEDS: FOLIC ACID 1 MG TAB PO SCH (12:02)
[2017-05-04] MEDS: ENOXAPARIN SOD 40 MG/0.4 ML SYRINGE SC SCH (12:03)
[2017-05-04] MEDS: FAMOTIDINE 20 MG TAB PO SCH (12:03)
[2017-05-04] MEDS: ASPirin 81 mg TAB PO SCH (12:03)
[2017-05-04] MEDS: THIAMINE INJ 250 MG in D5W 5% 50 ML IV SCH (13:00)
[2017-05-04 13:10] VITALS: BP 152/97
[2017-05-04 13:37] LABS: Allen Test Yes; Base Excess 4.6 mmol/L (-2.0-2.0); Blood 02Sat 92.3 % (96-100); Blood COHb 0.3 % (0.5-1.5); Blood MetHb 0.3 % (0.0-1.5); HCO3 27.2 mmol/L (22-26.0); HHb 7.7 % (0.0-5.0); MODE ROOM AIR; O2Hb 91.7 % (94.0-97.0); PCO2 33.1 mmHg (35.0-45.0); PCO2(T) 33.1 mmHg (35.0-45.0); PO2 68.8 mmHg (80.0-100.0); PO2(T) 68.8 mmHg (80.0-100.0); Sample Type Arterial; pH 7.532 (7.350-7.450)
[2017-05-04] MEDS: SODIUM CHLORIDE 0.9% 1,000 ML IV SCH (15:16)
[2017-05-04 18:00] VITALS: BP 136/89
[2017-05-05 02:06] LABS: Vitamin B1, Whole Blood 116.4 nmol/L (66.5-200.0)
== END 2017-05-04 16:40 | disposition home or self-care (01) | DRG 193 ==
LOC: ER 21:11 → TELE 21:12 → TELE-EAST 04-27 19:45 → EAST 04-30 20:26 → WEST WING 05-01 22:52
PROVIDERS: ADMIT Nurse Practitioner; ATTEND Internal Medicine Pulmonary Disease
PROC: 4A023N7 Measurement of Cardiac Sampling and Pressure, Left Heart, Percutaneous Approach (ICD-10-PCS; principal; 2017-04-29)
PROC: B2111ZZ Fluoroscopy of Multiple Coronary Arteries using Low Osmolar Contrast (ICD-10-PCS; 2017-04-29)
PROC: B2151ZZ Fluoroscopy of Left Heart using Low Osmolar Contrast (ICD-10-PCS; 2017-04-29)
DX: J18.9 Pneumonia, unspecified organism (principal); E43 Unspecified severe protein-calorie malnutrition; G92 Toxic encephalopathy; E87.1 Hypo-osmolality and hyponatremia; N39.0 Urinary tract infection, site not specified; J96.10 Chronic respiratory failure, unspecified whether with hypoxia or hypercapnia; Z68.1 Body mass index [BMI] 19.9 or less, adult; D64.9 Anemia, unspecified; E16.2 Hypoglycemia, unspecified; E87.6 Hypokalemia; E86.0 Dehydration; F10.10 Alcohol abuse, uncomplicated; I25.10 Atherosclerotic heart disease of native coronary artery without angina pectoris; I70.8 Atherosclerosis of other arteries; Z91.19 Patient's noncompliance with other medical treatment and regimen
CPT/HCPCS: 36415; 36600; 70450; 71010; 71020; 71275; 74176; 80048; 80053; 80061; 80307; 80320; 81001; 82140; 82150; 82805; 83036; 83605; 83690; 83735; 83880; 84425; 84484; 85025; 85379; 85610; 85730; 86850; 86900; 86901; 86920; 87040; 87081; 93005; 93306; 93458; 94761; 96361; 96372; 96374; 99152; J0696; J2250; J7060

== ENCOUNTER → 2017-06-06 | Outpatient (CLI) | payer OTHER ==
[2017-06-06 13:18] LABS: Basophils # (auto) 0.1 uL; Basophils % (auto) 0.9 % (0.0-2.0); CONDITION Y; DEFINITIVE SEE PRINTOUT; Eosinophils # (auto) 0.3 uL; Eosinophils % (auto) 3.4 % (0.0-7.0); Hematocrit 46.9 % (41.0-53.0); Hemoglobin 15.6 g/dL (13.5-17.5); Lymphocytes # (auto) 3.2 uL; Lymphocytes % (auto) 40.6 % (10.0-50.0); Mean Corpuscular Hgb Conc. 33.4 g/dL (32.0-36.0); Mean Corpuscular Volume 104.7 fL (80.0-100.0); Mean Platelet Volume 7.7 fL (7.4-10.4); Monocytes # (auto) 0.7 uL; Neutrophils # (auto) 3.7 uL; Neutrophils % (auto) 46.1 % (37.0-80.0); Platelet Count (auto) 310 10^3/uL (140-450); SUSPECT SEE PRINTOUT
[2017-06-06 13:31] LABS: Red Cell Distribution Width 22.6 % (11.6-16.0)
[2017-06-06 13:50] LABS: Albumin 3.3 g/dL (3.4-5.0); BUN/Creatinine Ratio 9.5; Bilirubin, Total 0.5 mg/dL (0.2-1.0); Calcium 8.5 mg/dL (8.5-10.1); Hepatitis B Surface Antibody Negative; Potassium 4.6 mmol/L (3.5-5.1); Total Protein 7.4 g/dL (6.4-8.2)
[2017-06-06 14:21] LABS: Anisocytosis Slight; Platelet Estimate Adequate
[2017-06-06 14:22] LABS: Large Platelets FEW; Macrocytosis Slight
== END | disposition home or self-care (01) ==
LOC: LAB 12:36
PROVIDERS: ATTEND Internal Medicine
DX: I10 Essential (primary) hypertension (principal); G40.909 Epilepsy, unspecified, not intractable, without status epilepticus; F17.200 Nicotine dependence, unspecified, uncomplicated; F10.20 Alcohol dependence, uncomplicated; G92 Toxic encephalopathy; E43 Unspecified severe protein-calorie malnutrition
CPT/HCPCS: 36415; 80053; 80061; 83036; 84443; 85025; 86704; 86705; 86706; 86708; 86709; 86803; 87340